=== PATIENT | male | born 1955 | race Caucasian/White ===

== ENCOUNTER 2017-07-29 10:27 | Day surgery (SDC) | payer MEDICARE ==
[~2017-07-29] VITALS: Ht 182.9 cm; Wt 94.0 kg
[2017-07-29 11:06] VITALS: BP 196/107
[2017-07-29] MEDS ORDERED: DIPHENHYDRAMINE 50 MG/ML, 1ML ONE (11:06)
[2017-07-29] MEDS ORDERED: ONDANSETRON 2MG/ML, 2ML ONE (11:28)
[2017-07-29] MEDS ORDERED: ONDANSETRON 2MG/ML, 2ML IVPush ONE (11:30)
[2017-07-29] MEDS ORDERED: DIPHENHYDRAMINE 50 MG/ML, 1ML IVPush ONE (11:30)
[2017-07-29] MEDS ORDERED: PLEASE ENTER HEIGHT AND WEIGHT MC SCH (11:30)
[2017-07-29] MEDS ORDERED: PLEASE ENTER ALLERGIES MC SCH (11:30)
[2017-07-29] MEDS ORDERED: MOXI3DRO11 OP (11:56)
[2017-07-29] MEDS ORDERED: LISI40TA PO (11:56)
[2017-07-29] MEDS ORDERED: CARV12.543 PO (11:56)
[2017-07-29] MEDS ORDERED: FERR325T17 PO (11:56)
[2017-07-29] MEDS ORDERED: BIMA2.5D5 OP (11:56)
[2017-07-29] MEDS ORDERED: TIMO5DRO33 OP (11:56)
[2017-07-29] MEDS ORDERED: CALC667C PO (11:56)
[2017-07-29] MEDS ORDERED: INSU100V8 SQ ×2 (12:00)
[2017-07-29 12:13] LABS: BASOPHILS # (AUTO) 0.03 x10^3/uL (0-0.1); BASOPHILS % (AUTO) 1 % (0-1); EOSINOPHILS # (AUTO) 0.11 x10^3/uL (0-0.4); EOSINOPHILS % (AUTO) 3 % (1-7); LYMPHOCYTES # (AUTO) 0.77 x10^3/uL (1-3.4); LYMPHOCYTES % (AUTO) 19 % (22-44); MD NO; MEAN CORPUSCULAR HEMOGLOBIN 29.2 pg (27.5-34.5); MEAN CORPUSCULAR HGB CONC 32.9 g/dL (33.2-36.2); MEAN CORPUSCULAR VOLUME 88.9 fL (81-97); MEAN PLATELET VOLUME 6.8 fL (7.4-10.4); MONOCYTES # (AUTO) 0.34 x10^3/uL (0.2-0.8); MONOCYTES % (AUTO) 8 % (2-9); NEUTROPHILS # (AUTO) 2.86 x10^3/uL (1.8-6.8); NEUTROPHILS % (AUTO) 70 % (42-75); PLATELET COUNT 211 x10^3/uL (130-400); RED BLOOD COUNT 3.19 x10^6/uL (4.38-5.82); RED CELL DISTRIBUTION WIDTH 15.2 % (9.4-14.8)
[2017-07-29 12:24] LABS: ANION GAP 6 mmol/L (5-15); CALCIUM 7.8 mg/dL (8.5-10.1); CHLORIDE 107 mmol/L (98-107); CREATININE 3.03 mg/dL (0.7-1.3)
[2017-07-29] MEDS ORDERED: hydrALAzine 20 MG/ML, 1ML ONE (12:24)
[2017-07-29] MEDS ORDERED: hydrALAzine 20 MG/ML, 1ML IV ONE (12:30)
[2017-07-29 12:33] LABS: INTERNATIONAL NORMALIZED RATIO 0.96 (0.93-1.1); PROTHROMBIN TIME 9.9 Seconds (9.6-11.5)
[2017-07-29] MEDS ORDERED: FENTANYL PF 100 MCG/2ML ONE (13:09)
[2017-07-29] MEDS ORDERED: HEPARIN 1,000 UNITS/ML, 10ML ONE (13:09)
[2017-07-29] MEDS ORDERED: MIDAZOLAM 1 MG/ML, 5ML ONE (13:09)
[2017-07-29] MEDS ORDERED: VERAPAMIL 2.5 MG/ML, 2ML ONE (13:09)
[2017-07-29] MEDS ORDERED: LIDOCAINE-MPF 2% ,5ML ONE (13:09)
== END 2017-07-29 16:34 | disposition home or self-care (01) ==
LOC: CACL 10:27
PROVIDERS: ATTEND Internal Medicine Cardiovascular Disease
DX: I27.20 Pulmonary hypertension, unspecified (principal); I13.10 Hypertensive heart and chronic kidney disease without heart failure, with stage 1 through stage 4 chronic kidney disease, or unspecified chronic kidney disease; E11.22 Type 2 diabetes mellitus with diabetic chronic kidney disease; N18.4 Chronic kidney disease, stage 4 (severe); E11.65 Type 2 diabetes mellitus with hyperglycemia; Z88.0 Allergy status to penicillin; Z88.5 Allergy status to narcotic agent; Z87.891 Personal history of nicotine dependence; Z79.899 Other long term (current) drug therapy
CPT/HCPCS: 36415; 80048; 82962; 83880; 85025; 85610; 93451; 99156; C1769; C1894; J0360; J1644; J2250; J2405; J3010; J3490; J1200

== ENCOUNTER 2018-01-04 13:29 | Inpatient (IN) | payer MEDICARE ==
[~2018-01-04] VITALS: Ht 182.9 cm; Wt 77.8 kg
[~2018-01-04 13:29] MED LIST: BIMA2.5D5 OP; CALC667C PO; CARV12.543 PO; FERR325T17 PO; INSU100V8 SQ; LISI40TA PO; MOXI3DRO11 OP; TIMO5DRO33 OP
[2018-01-04] MEDS ORDERED: ONDANSETRON ODT 4 MG ONE (13:37)
[2018-01-04 13:52] LABS: BASOPHILS # (AUTO) 0.02 x10^3/uL (0-0.1); BASOPHILS % (AUTO) 0 % (0-1); EOSINOPHILS # (AUTO) 0.09 x10^3/uL (0-0.4); EOSINOPHILS % (AUTO) 2 % (1-7); LYMPHOCYTES # (AUTO) 0.64 x10^3/uL (1-3.4); LYMPHOCYTES % (AUTO) 14 % (22-44); MD NO; MEAN CORPUSCULAR HEMOGLOBIN 31.3 pg (27.5-34.5); MEAN CORPUSCULAR HGB CONC 35.3 g/dL (33.2-36.2); MEAN CORPUSCULAR VOLUME 88.6 fL (81-97); MEAN PLATELET VOLUME 7.1 fL (7.4-10.4); MONOCYTES # (AUTO) 0.41 x10^3/uL (0.2-0.8); MONOCYTES % (AUTO) 9 % (2-9); NEUTROPHILS # (AUTO) 3.25 x10^3/uL (1.8-6.8); NEUTROPHILS % (AUTO) 74 % (42-75); PLATELET COUNT 195 x10^3/uL (130-400); RED BLOOD COUNT 2.93 x10^6/uL (4.38-5.82); RED CELL DISTRIBUTION WIDTH 13.3 % (9.4-14.8)
[2018-01-04] MEDS ORDERED: MECLIZINE CHEWABLE 25 MG TAB PO ONE (14:00)
[2018-01-04] MEDS ORDERED: SODIUM CHLORIDE 0.9% 1,000ML IVBOLUS ONE (14:00)
[2018-01-04] MEDS ORDERED: SODIUM CHLORIDE FLUSH 10ML SYR IVF ONE (14:00)
[2018-01-04] MEDS ORDERED: ONDANSETRON 2MG/ML, 2ML IVPush ONE (14:00)
[2018-01-04] MEDS ORDERED: PLEASE ENTER HEIGHT AND WEIGHT MC SCH (14:00)
[2018-01-04] MEDS ORDERED: MECLIZINE CHEWABLE 25 MG TAB ONE (14:02)
[2018-01-04 14:04] LABS: ALBUMIN 2.7 g/dL (3.4-5.0); ANION GAP 12 mmol/L (5-15); CALCIUM 7.7 mg/dL (8.5-10.1); CHLORIDE 92 mmol/L (98-107)
[2018-01-04 14:09] LABS: ALANINE AMINOTRANSFERASE 18 U/L (12-78); ALKALINE PHOSPHATASE 76 U/L (45-117); BILIRUBIN,TOTAL 0.3 mg/dL (0.2-1.0); CREATININE 5.43 mg/dL (0.7-1.3); TOTAL PROTEIN 5.7 g/dL (6.4-8.2); TROPONIN I 0.064 ng/mL (0.000-0.045)
[2018-01-04 14:25] LABS: ACETAMINOPHEN < 2 mcg/mL (10-30); SALICYLATE LEVEL < 1.7 mg/dL (2.8-20.0)
[2018-01-04] MEDS ORDERED: hydrALAzine 20 MG/ML, 1ML ONE (14:46)
[2018-01-04] MEDS ORDERED: hydrALAzine 20 MG/ML, 1ML IV ONE ×2 (15:00→16:00)
[2018-01-04 15:04] LABS: INTERNATIONAL NORMALIZED RATIO 0.96 (0.93-1.1)
[2018-01-04] MEDS ORDERED: FUROSEMIDE 100 MG/10 ML IV ONE (16:00)
[2018-01-04] MEDS ORDERED: INSU100C5 SQ-INSULIN (16:33)
[2018-01-04] MEDS ORDERED: ONDANSETRON 2MG/ML, 2ML IVPush PRN (17:00)
[2018-01-04] MEDS ORDERED: POLYETHYLENE GLYCOL 17 GM PACKET PO PRN (17:00)
[2018-01-04] MEDS ORDERED: INSULIN DETEMIR 100 UNITS/ML, PEN SQ-INSULIN SCH (17:00)
[2018-01-04] MEDS ORDERED: LABETALOL 5MG/ML, 20ML IVPush PRN ×2 (17:00→21:00)
[2018-01-04 17:04] LABS: FREE T4 (FREE THYROXINE) 0.8 ng/dL (0.76-1.46); THYROID STIMULATING HORMONE 13.2 mIU/L (0.358-3.740)
[2018-01-04 17:06] LABS: CHOL/HDL RATIO 7.3; LDL/HDL RATIO 5.2 (0.5-3.0)
[2018-01-04 17:33] LABS: HEMOGLOBIN A1C 13.7 % (4.2-6.3)
[2018-01-04 18:05] VITALS: BP 170/81
[2018-01-04 18:23] LABS: CHLORIDE,URINE RANDOM 83 mmol/L; POTASSIUM,URINE RANDOM 25 mmol/L; SODIUM,URINE RANDOM 74 mmol/L
[2018-01-04 18:33] LABS: AMPHETAMINE SCREEN, URINE Negative (Negative); BARBITURATE SCREEN, URINE Negative (Negative); BENZODIAZEPINE SCREEN, URINE Negative (Negative); CANNABINOID SCREEN, URINE Negative (Negative); COCAINE SCREEN, URINE Negative (Negative); METHADONE SCREEN, URINE Negative (Negative); OPIATE SCREEN, URINE Negative (Negative)
[2018-01-04] MEDS: AMLODIPINE 5 MG TABLET PO SCH ×2 (18:34→20:48)
[2018-01-04] MEDS: ONDANSETRON ODT 4 MG PO PRN ×2 (18:34→22:51)
[2018-01-04] MEDS: HEPARIN 5,000 UNITS/ML, 1ML SQ SCH (18:34)
[2018-01-04 18:36] VITALS: BP 169/80
[2018-01-04 18:40] LABS: MICROSCOPIC AUTO
[2018-01-04 18:42] LABS: CULTURE INDICATED? NO
[2018-01-04] MEDS: CARVEDILOL 25 MG TABLET PO SCH (20:48)
[2018-01-04] MEDS: INSULIN LISPRO 100 UNITS/ML, PEN SQ-INSULIN SCH ×2 (20:48→20:53)
[2018-01-04] MEDS: INSULIN GLARGINE 100 UNITS/ML, PEN SQ-INSULIN SCH (20:49)
[2018-01-04] MEDS ORDERED: hydrALAzine 20 MG/ML, 1ML IV PRN (21:00)
[2018-01-04] MEDS ORDERED: SODIUM CHLORIDE 0.9% 1,000 ML IV SCH (21:30)
[2018-01-04 21:59] LABS: TROPONIN I 0.055 ng/mL (0.000-0.045)
[2018-01-05] MEDS: HEPARIN 5,000 UNITS/ML, 1ML SQ SCH ×3 (01:00→17:34)
[2018-01-05 01:39] VITALS: BP 110/67
[2018-01-05] MEDS: ATORVASTATIN 40 MG TABLET PO SCH ×2 (03:10→20:50)
[2018-01-05 05:48] LABS: BASOPHILS # (AUTO) 0.02 x10^3/uL (0-0.1); BASOPHILS % (AUTO) 1 % (0-1); EOSINOPHILS % (AUTO) 3 % (1-7); LYMPHOCYTES # (AUTO) 0.91 x10^3/uL (1-3.4); LYMPHOCYTES % (AUTO) 23 % (22-44); MD NO; MEAN CORPUSCULAR HEMOGLOBIN 29.8 pg (27.5-34.5); MEAN CORPUSCULAR HGB CONC 33.7 g/dL (33.2-36.2); MEAN CORPUSCULAR VOLUME 88.2 fL (81-97); MEAN PLATELET VOLUME 7.3 fL (7.4-10.4); MONOCYTES # (AUTO) 0.38 x10^3/uL (0.2-0.8); MONOCYTES % (AUTO) 10 % (2-9); NEUTROPHILS # (AUTO) 2.56 x10^3/uL (1.8-6.8); NEUTROPHILS % (AUTO) 64 % (42-75); PLATELET COUNT 161 x10^3/uL (130-400); RED BLOOD COUNT 2.76 x10^6/uL (4.38-5.82); RED CELL DISTRIBUTION WIDTH 13.8 % (9.4-14.8)
[2018-01-05 05:57] LABS: ALBUMIN 2.2 g/dL (3.4-5.0); ANION GAP 9 mmol/L (5-15); CALCIUM 7.8 mg/dL (8.5-10.1); CHLORIDE 97 mmol/L (98-107)
[2018-01-05 06:01] LABS: ALKALINE PHOSPHATASE 62 U/L (45-117); BILIRUBIN,TOTAL 0.3 mg/dL (0.2-1.0); CHOL/HDL RATIO 6.7; CHOLESTEROL, TOTAL 308 mg/dL (140-239); CREATININE 5.71 mg/dL (0.7-1.3); HDL CHOL % 15 % (26-37); HDL CHOLESTEROL (DIRECT) 46 mg/dL (40-60); LDL CHOLESTEROL,CALCULATED 235 mg/dL (54-169); LDL/HDL RATIO 5.1 (0.5-3.0); TOTAL PROTEIN 5.1 g/dL (6.4-8.2); TRIGLYCERIDES 134 mg/dL (50-200); VLDL CHOLESTEROL 27 mg/dL (0-25)
[2018-01-05 06:02] LABS: TROPONIN I 0.054 ng/mL (0.000-0.045)
[2018-01-05 06:07] LABS: ALANINE AMINOTRANSFERASE 19 U/L (12-78)
[2018-01-05 06:57] VITALS: BP 115/64
[2018-01-05] MEDS: INSULIN LISPRO 100 UNITS/ML, PEN SQ-INSULIN SCH ×4 (07:00→20:48)
[2018-01-05] MEDS: SENNA/DOCUSATE TABLET PO SCH (09:00)
[2018-01-05] MEDS ORDERED: SODIUM CHLORIDE 0.9% 1,000 ML IV SCH (10:00)
[2018-01-05] MEDS: CALCIUM ACETATE 667 MG CAPSULE PO SCH (10:26)
[2018-01-05] MEDS: CARVEDILOL 25 MG TABLET PO SCH ×2 (10:26→20:50)
[2018-01-05] MEDS: FERROUS SULFATE 325 MG TABLET PO SCH (10:26)
[2018-01-05] MEDS: AMLODIPINE 5 MG TABLET PO SCH ×2 (10:27→20:50)
[2018-01-05] MEDS ORDERED: ACETAMINOPHEN 325 MG TABLET PO PRN (11:00)
[2018-01-05] MEDS: SEVELAMER CARBONATE 800MG TAB PO SCH ×2 (12:46→17:34)
[2018-01-05 13:23] VITALS: BP 134/74
[2018-01-05 19:50] VITALS: BP 153/79
[2018-01-05] MEDS: INSULIN GLARGINE 100 UNITS/ML, PEN SQ-INSULIN SCH (20:50)
[2018-01-06] VITALS (8 sets, daily range): BP systolic 94–161; BP diastolic 63–84
[2018-01-06] MEDS: HEPARIN 5,000 UNITS/ML, 1ML SQ SCH ×3 (01:06→16:11)
[2018-01-06 06:44] LABS: BASOPHILS # (AUTO) 0.01 x10^3/uL (0-0.1); BASOPHILS % (AUTO) 0 % (0-1); EOSINOPHILS # (AUTO) 0.14 x10^3/uL (0-0.4); EOSINOPHILS % (AUTO) 4 % (1-7); LYMPHOCYTES # (AUTO) 0.73 x10^3/uL (1-3.4); LYMPHOCYTES % (AUTO) 21 % (22-44); MD NO; MEAN CORPUSCULAR VOLUME 88.3 fL (81-97); MEAN PLATELET VOLUME 7.3 fL (7.4-10.4); MONOCYTES # (AUTO) 0.32 x10^3/uL (0.2-0.8); MONOCYTES % (AUTO) 9 % (2-9); NEUTROPHILS # (AUTO) 2.27 x10^3/uL (1.8-6.8); NEUTROPHILS % (AUTO) 65 % (42-75); PLATELET COUNT 159 x10^3/uL (130-400); RED BLOOD COUNT 2.72 x10^6/uL (4.38-5.82); RED CELL DISTRIBUTION WIDTH 13.7 % (9.4-14.8)
[2018-01-06 06:56] LABS: ALBUMIN 2.2 g/dL (3.4-5.0); ANION GAP 12 mmol/L (5-15); CALCIUM 7.5 mg/dL (8.5-10.1); CHLORIDE 97 mmol/L (98-107)
[2018-01-06 07:22] LABS: CREATININE 5.96 mg/dL (0.7-1.3); IRON LEVEL 92 mcg/dL (65-175); TOTAL IRON BINDING CAPACITY 223 mcg/dL (250-450)
[2018-01-06 07:23] LABS: % IRON SATURATION 41 % (20-55); ALANINE AMINOTRANSFERASE 14 U/L (12-78); ALKALINE PHOSPHATASE 59 U/L (45-117); BILIRUBIN,TOTAL 0.2 mg/dL (0.2-1.0); TOTAL PROTEIN 4.9 g/dL (6.4-8.2)
[2018-01-06] MEDS: INSULIN LISPRO 100 UNITS/ML, PEN SQ-INSULIN SCH ×4 (07:30→21:00)
[2018-01-06] MEDS: SENNA/DOCUSATE TABLET PO SCH (09:05)
[2018-01-06] MEDS: CALCIUM ACETATE 667 MG CAPSULE PO SCH (09:05)
[2018-01-06] MEDS: FERROUS SULFATE 325 MG TABLET PO SCH (09:05)
[2018-01-06] MEDS: CARVEDILOL 25 MG TABLET PO SCH ×2 (09:05→21:03)
[2018-01-06] MEDS: SEVELAMER CARBONATE 800MG TAB PO SCH ×3 (09:05→17:24)
[2018-01-06] MEDS: AMLODIPINE 5 MG TABLET PO SCH ×2 (09:05→21:03)
[2018-01-06] MEDS: CHOLECALCIFEROL 5,000u TAB PO SCH (11:03)
[2018-01-06] MEDS: ATORVASTATIN 40 MG TABLET PO SCH (21:03)
[2018-01-06] MEDS: INSULIN GLARGINE 100 UNITS/ML, PEN SQ-INSULIN SCH (21:08)
[2018-01-07] MEDS: HEPARIN 5,000 UNITS/ML, 1ML SQ SCH ×3 (01:00→16:45)
[2018-01-07 02:00] VITALS: BP 144/77
[2018-01-07 05:35] LABS: CHLORIDE 97 mmol/L (98-107)
[2018-01-07 05:41] LABS: ANION GAP 10 mmol/L (5-15); CALCIUM 7.8 mg/dL (8.5-10.1); CREATININE 6.12 mg/dL (0.7-1.3)
[2018-01-07] MEDS: INSULIN LISPRO 100 UNITS/ML, PEN SQ-INSULIN SCH ×5 (07:00→20:49)
[2018-01-07] MEDS: SEVELAMER CARBONATE 800MG TAB PO SCH ×3 (08:00→16:45)
[2018-01-07 08:25] VITALS: BP_SYST 145; BP_SYST 153; BP_SYST 97; BP_DIAS 61; BP_DIAS 76; BP_DIAS 78
[2018-01-07] MEDS: SENNA/DOCUSATE TABLET PO SCH (09:00)
[2018-01-07] MEDS: CHOLECALCIFEROL 5,000u TAB PO SCH (09:08)
[2018-01-07] MEDS: FERROUS SULFATE 325 MG TABLET PO SCH (09:08)
[2018-01-07] MEDS: CARVEDILOL 25 MG TABLET PO SCH ×2 (09:08→20:46)
[2018-01-07] MEDS: CALCIUM ACETATE 667 MG CAPSULE PO SCH (09:09)
[2018-01-07] MEDS: AMLODIPINE 5 MG TABLET PO SCH ×2 (09:09→20:46)
[2018-01-07 12:25] VITALS: BP_SYST 114; BP_SYST 134; BP_SYST 145; BP_DIAS 68; BP_DIAS 69; BP_DIAS 78
[2018-01-07 20:00] VITALS: BP 143/73
[2018-01-07 20:01] VITALS: BP 130/70
[2018-01-07 20:02] VITALS: BP 111/62
[2018-01-07] MEDS: ATORVASTATIN 40 MG TABLET PO SCH (20:46)
[2018-01-07] MEDS: INSULIN GLARGINE 100 UNITS/ML, PEN SQ-INSULIN SCH (20:47)
[2018-01-08] MEDS: HEPARIN 5,000 UNITS/ML, 1ML SQ SCH ×3 (01:00→17:27)
[2018-01-08 02:00] VITALS: BP 144/76
[2018-01-08 02:01] VITALS: BP 123/68
[2018-01-08 02:02] VITALS: BP 107/52
[2018-01-08 04:52] LABS: ANION GAP 7 mmol/L (5-15); CALCIUM 7.8 mg/dL (8.5-10.1); CHLORIDE 99 mmol/L (98-107); CREATININE 6.43 mg/dL (0.7-1.3)
[2018-01-08] MEDS: ONDANSETRON ODT 4 MG PO PRN ×2 (06:48→11:33)
[2018-01-08] MEDS: INSULIN LISPRO 100 UNITS/ML, PEN SQ-INSULIN SCH ×4 (07:00→21:16)
[2018-01-08 07:21] VITALS: BP 134/77
[2018-01-08] MEDS: SEVELAMER CARBONATE 800MG TAB PO SCH ×3 (08:00→17:00)
[2018-01-08] MEDS: CALCIUM ACETATE 667 MG CAPSULE PO SCH (09:00)
[2018-01-08] MEDS: CARVEDILOL 25 MG TABLET PO SCH ×2 (09:00→20:56)
[2018-01-08] MEDS: FERROUS SULFATE 325 MG TABLET PO SCH (09:00)
[2018-01-08] MEDS: CHOLECALCIFEROL 5,000u TAB PO SCH (09:00)
[2018-01-08] MEDS: SENNA/DOCUSATE TABLET PO SCH (09:00)
[2018-01-08] MEDS: AMLODIPINE 5 MG TABLET PO SCH ×2 (09:00→20:56)
[2018-01-08] MEDS ORDERED: LIDOCAINE-MPF 2%, 2ML ONE (11:11)
[2018-01-08 14:00] VITALS: BP 106/58
[2018-01-08] MEDS: ATORVASTATIN 40 MG TABLET PO SCH (20:56)
[2018-01-08] MEDS: INSULIN GLARGINE 100 UNITS/ML, PEN SQ-INSULIN SCH (21:17)
[2018-01-08 21:18] VITALS: BP 159/79
[2018-01-09] VITALS (7 sets, daily range): BP systolic 96–139; BP diastolic 57–84
[2018-01-09] MEDS: HEPARIN 5,000 UNITS/ML, 1ML SQ SCH ×3 (01:06→17:32)
[2018-01-09 06:02] LABS: ALBUMIN 2.4 g/dL (3.4-5.0); ANION GAP 9 mmol/L (5-15); CALCIUM 7.6 mg/dL (8.5-10.1); CHLORIDE 97 mmol/L (98-107); CREATININE 5.47 mg/dL (0.7-1.3)
[2018-01-09] MEDS: SEVELAMER CARBONATE 800MG TAB PO SCH ×3 (08:00→17:00)
[2018-01-09] MEDS ORDERED: MECLIZINE 12.5 MG TABLET PO PRN (08:00)
[2018-01-09] MEDS: INSULIN LISPRO 100 UNITS/ML, PEN SQ-INSULIN SCH ×4 (08:56→20:20)
[2018-01-09] MEDS: FERROUS SULFATE 325 MG TABLET PO SCH (08:58)
[2018-01-09] MEDS: CALCIUM ACETATE 667 MG CAPSULE PO SCH (08:58)
[2018-01-09] MEDS: AMLODIPINE 5 MG TABLET PO SCH ×2 (08:59→20:17)
[2018-01-09] MEDS: CHOLECALCIFEROL 5,000u TAB PO SCH (08:59)
[2018-01-09] MEDS: SENNA/DOCUSATE TABLET PO SCH (09:00)
[2018-01-09] MEDS: CARVEDILOL 25 MG TABLET PO SCH ×2 (09:04→20:17)
[2018-01-09] MEDS: ONDANSETRON ODT 4 MG PO PRN (11:11)
[2018-01-09] MEDS: INSULIN GLARGINE 100 UNITS/ML, PEN SQ-INSULIN SCH (20:19)
[2018-01-09] MEDS: ATORVASTATIN 40 MG TABLET PO SCH (20:20)
[2018-01-10] MEDS: HEPARIN 5,000 UNITS/ML, 1ML SQ SCH ×3 (01:00→18:14)
[2018-01-10 01:43] VITALS: BP 135/73
[2018-01-10] MEDS: INSULIN LISPRO 100 UNITS/ML, PEN SQ-INSULIN SCH ×4 (07:00→20:38)
[2018-01-10] MEDS: SEVELAMER CARBONATE 800MG TAB PO SCH ×3 (08:00→17:00)
[2018-01-10 08:27] VITALS: BP 126/63
[2018-01-10] MEDS: CARVEDILOL 25 MG TABLET PO SCH ×2 (08:45→20:36)
[2018-01-10] MEDS: FERROUS SULFATE 325 MG TABLET PO SCH (08:45)
[2018-01-10] MEDS: AMLODIPINE 5 MG TABLET PO SCH ×2 (08:45→20:36)
[2018-01-10] MEDS: SENNA/DOCUSATE TABLET PO SCH (08:45)
[2018-01-10] MEDS: CALCIUM ACETATE 667 MG CAPSULE PO SCH (08:46)
[2018-01-10] MEDS: CHOLECALCIFEROL 5,000u TAB PO SCH (08:46)
[2018-01-10 14:03] VITALS: BP 116/62
[2018-01-10 18:36] VITALS: BP 137/72
[2018-01-10] MEDS: INSULIN GLARGINE 100 UNITS/ML, PEN SQ-INSULIN SCH (20:37)
[2018-01-10] MEDS: ATORVASTATIN 40 MG TABLET PO SCH (20:39)
[2018-01-11] MEDS: HEPARIN 5,000 UNITS/ML, 1ML SQ SCH ×3 (01:00→18:08)
[2018-01-11 01:05] VITALS: BP 125/69
[2018-01-11] MEDS: INSULIN LISPRO 100 UNITS/ML, PEN SQ-INSULIN SCH ×4 (07:00→20:24)
[2018-01-11 07:18] LABS: BASOPHILS # (AUTO) 0.03 x10^3/uL (0-0.1); BASOPHILS % (AUTO) 1 % (0-1); EOSINOPHILS # (AUTO) 0.15 x10^3/uL (0-0.4); EOSINOPHILS % (AUTO) 4 % (1-7); LYMPHOCYTES # (AUTO) 0.72 x10^3/uL (1-3.4); LYMPHOCYTES % (AUTO) 20 % (22-44); MD NO; MEAN CORPUSCULAR HEMOGLOBIN 30.5 pg (27.5-34.5); MEAN CORPUSCULAR HGB CONC 34.6 g/dL (33.2-36.2); MEAN CORPUSCULAR VOLUME 88.3 fL (81-97); MEAN PLATELET VOLUME 7.2 fL (7.4-10.4); MONOCYTES # (AUTO) 0.48 x10^3/uL (0.2-0.8); MONOCYTES % (AUTO) 14 % (2-9); NEUTROPHILS # (AUTO) 2.17 x10^3/uL (1.8-6.8); NEUTROPHILS % (AUTO) 61 % (42-75); PLATELET COUNT 165 x10^3/uL (130-400); RED BLOOD COUNT 2.63 x10^6/uL (4.38-5.82); RED CELL DISTRIBUTION WIDTH 13.2 % (9.4-14.8)
[2018-01-11 07:30] LABS: ALANINE AMINOTRANSFERASE 14 U/L (12-78); ALBUMIN 2.3 g/dL (3.4-5.0); ANION GAP 9 mmol/L (5-15); CALCIUM 7.9 mg/dL (8.5-10.1); CHLORIDE 96 mmol/L (98-107)
[2018-01-11 07:33] LABS: ALKALINE PHOSPHATASE 60 U/L (45-117); BILIRUBIN,TOTAL 0.2 mg/dL (0.2-1.0); CREATININE 4.97 mg/dL (0.7-1.3); TOTAL PROTEIN 5.1 g/dL (6.4-8.2)
[2018-01-11] MEDS: SEVELAMER CARBONATE 800MG TAB PO SCH ×3 (08:00→17:00)
[2018-01-11 08:30] VITALS: BP 124/74
[2018-01-11] MEDS: CHOLECALCIFEROL 5,000u TAB PO SCH (08:30)
[2018-01-11] MEDS: CARVEDILOL 25 MG TABLET PO SCH ×2 (08:31→20:23)
[2018-01-11] MEDS: AMLODIPINE 5 MG TABLET PO SCH ×2 (08:31→20:23)
[2018-01-11] MEDS: SENNA/DOCUSATE TABLET PO SCH (08:31)
[2018-01-11] MEDS: CALCIUM ACETATE 667 MG CAPSULE PO SCH (08:31)
[2018-01-11] MEDS: FERROUS SULFATE 325 MG TABLET PO SCH (08:44)
[2018-01-11 13:10] VITALS: BP 111/49
[2018-01-11 19:18] VITALS: BP 123/69
[2018-01-11] MEDS: INSULIN GLARGINE 100 UNITS/ML, PEN SQ-INSULIN SCH (20:24)
[2018-01-11] MEDS: LOVASTATIN 20 MG TABLET PO SCH (21:00)
[2018-01-12 01:10] VITALS: BP 123/67
[2018-01-12] MEDS: HEPARIN 5,000 UNITS/ML, 1ML SQ SCH ×4 (01:22→17:21)
[2018-01-12 03:31] LABS: MEAN CORPUSCULAR HEMOGLOBIN 30.4 pg (27.5-34.5); MEAN CORPUSCULAR HGB CONC 34.3 g/dL (33.2-36.2); MEAN CORPUSCULAR VOLUME 88.6 fL (81-97); MEAN PLATELET VOLUME 7.7 fL (7.4-10.4); PLATELET COUNT 167 x10^3/uL (130-400); RED BLOOD COUNT 2.55 x10^6/uL (4.38-5.82); RED CELL DISTRIBUTION WIDTH 13.4 % (9.4-14.8)
[2018-01-12 03:32] LABS: ALANINE AMINOTRANSFERASE 13 U/L (12-78); ALBUMIN 2.4 g/dL (3.4-5.0); ANION GAP 9 mmol/L (5-15); CALCIUM 8.1 mg/dL (8.5-10.1); CHLORIDE 96 mmol/L (98-107); CREATININE 5.21 mg/dL (0.7-1.3)
[2018-01-12 03:34] LABS: ALKALINE PHOSPHATASE 57 U/L (45-117); BILIRUBIN,TOTAL 0.2 mg/dL (0.2-1.0); TOTAL PROTEIN 5.2 g/dL (6.4-8.2)
[2018-01-12 03:44] LABS: BASOPHILS # (AUTO) 0.03 x10^3/uL (0-0.1); BASOPHILS % (AUTO) 1 % (0-1); EOSINOPHILS # (AUTO) 0.18 x10^3/uL (0-0.4); EOSINOPHILS % (AUTO) 5 % (1-7); LYMPHOCYTES # (AUTO) 0.79 x10^3/uL (1-3.4); LYMPHOCYTES % (AUTO) 22 % (22-44); MD SCAN; MONOCYTES # (AUTO) 0.48 x10^3/uL (0.2-0.8); MONOCYTES % (AUTO) 13 % (2-9); NEUTROPHILS # (AUTO) 2.11 x10^3/uL (1.8-6.8); NEUTROPHILS % (AUTO) 59 % (42-75)
[2018-01-12 08:00] VITALS: BP 135/70
[2018-01-12] MEDS: INSULIN LISPRO 100 UNITS/ML, PEN SQ-INSULIN SCH ×5 (09:25→20:41)
[2018-01-12] MEDS: SEVELAMER CARBONATE 800MG TAB PO SCH ×4 (09:26→17:21)
[2018-01-12] MEDS: AMLODIPINE 5 MG TABLET PO SCH ×2 (09:26→20:38)
[2018-01-12] MEDS: CARVEDILOL 25 MG TABLET PO SCH ×2 (09:26→20:38)
[2018-01-12] MEDS: FERROUS SULFATE 325 MG TABLET PO SCH (09:26)
[2018-01-12] MEDS: CALCIUM ACETATE 667 MG CAPSULE PO SCH (09:27)
[2018-01-12] MEDS: SENNA/DOCUSATE TABLET PO SCH (09:27)
[2018-01-12] MEDS: CHOLECALCIFEROL 5,000u TAB PO SCH (09:27)
[2018-01-12 13:30] VITALS: BP 142/71
[2018-01-12 20:00] VITALS: BP 150/71
[2018-01-12] MEDS: INSULIN GLARGINE 100 UNITS/ML, PEN SQ-INSULIN SCH (20:40)
[2018-01-12] MEDS: LOVASTATIN 20 MG TABLET PO SCH (20:41)
[2018-01-13 02:00] VITALS: BP 128/67
[2018-01-13 06:50] LABS: MEAN CORPUSCULAR HEMOGLOBIN 30.6 pg (27.5-34.5); MEAN CORPUSCULAR HGB CONC 34.4 g/dL (33.2-36.2); MEAN CORPUSCULAR VOLUME 88.9 fL (81-97); MEAN PLATELET VOLUME 7.8 fL (7.4-10.4); PLATELET COUNT 160 x10^3/uL (130-400); RED BLOOD COUNT 2.39 x10^6/uL (4.38-5.82); RED CELL DISTRIBUTION WIDTH 13.6 % (9.4-14.8)
[2018-01-13 06:51] LABS: ALANINE AMINOTRANSFERASE 13 U/L (12-78); ALBUMIN 2.3 g/dL (3.4-5.0); ANION GAP 10 mmol/L (5-15); CALCIUM 7.8 mg/dL (8.5-10.1); CHLORIDE 94 mmol/L (98-107); CREATININE 5.68 mg/dL (0.7-1.3)
[2018-01-13 06:54] LABS: ALKALINE PHOSPHATASE 61 U/L (45-117); BILIRUBIN,TOTAL 0.2 mg/dL (0.2-1.0); TOTAL PROTEIN 5.3 g/dL (6.4-8.2)
[2018-01-13] MEDS: INSULIN LISPRO 100 UNITS/ML, PEN SQ-INSULIN SCH ×4 (07:00→22:09)
[2018-01-13 07:35] LABS: BASOPHILS # (AUTO) 0.03 x10^3/uL (0-0.1); BASOPHILS % (AUTO) 1 % (0-1); EOSINOPHILS # (AUTO) 0.14 x10^3/uL (0-0.4); EOSINOPHILS % (AUTO) 4 % (1-7); LYMPHOCYTES # (AUTO) 0.61 x10^3/uL (1-3.4); LYMPHOCYTES % (AUTO) 17 % (22-44); MD SCAN; MONOCYTES % (AUTO) 11 % (2-9); NEUTROPHILS # (AUTO) 2.37 x10^3/uL (1.8-6.8); NEUTROPHILS % (AUTO) 67 % (42-75)
[2018-01-13 08:09] VITALS: BP 132/70
[2018-01-13] MEDS: CARVEDILOL 25 MG TABLET PO SCH ×2 (08:21→22:02)
[2018-01-13] MEDS: AMLODIPINE 5 MG TABLET PO SCH ×2 (08:21→22:02)
[2018-01-13] MEDS: FERROUS SULFATE 325 MG TABLET PO SCH (08:22)
[2018-01-13] MEDS: SENNA/DOCUSATE TABLET PO SCH (08:23)
[2018-01-13] MEDS: CHOLECALCIFEROL 5,000u TAB PO SCH (08:23)
[2018-01-13] MEDS: HEPARIN 5,000 UNITS/ML, 1ML SQ SCH ×2 (08:23→17:21)
[2018-01-13] MEDS: CALCIUM ACETATE 667 MG CAPSULE PO SCH (08:23)
[2018-01-13] MEDS: SEVELAMER CARBONATE 800MG TAB PO SCH ×2 (11:20→17:00)
[2018-01-13 13:12] VITALS: BP 140/73
[2018-01-13] MEDS ORDERED: LIDOCAINE-MPF 2%, 2ML ONE (13:30)
[2018-01-13] MEDS ORDERED: FLUMAZENIL 0.1 MG/1 ML, 5ML ONE (13:50)
[2018-01-13] MEDS ORDERED: FENTANYL PF 100 MCG/2ML ONE (13:50)
[2018-01-13] MEDS ORDERED: NALOXONE 1 MG/ML, 2ML ONE (13:50)
[2018-01-13] MEDS ORDERED: MIDAZOLAM 1 MG/ML, 5ML ONE (13:50)
[2018-01-13] MEDS ORDERED: VANCOMYCIN PER PHARMACY MC PRN (14:00)
[2018-01-13] MEDS ORDERED: VANCOMYCIN 1,500 MG in SODIUM CHLORIDE 0.9% 250 ML IV ONE (14:00)
[2018-01-13] MEDS ORDERED: ARANESP 100 MCG/ML **ESRD SQ SCH (14:30)
[2018-01-13 20:00] VITALS: BP 157/73
[2018-01-13] MEDS: LOVASTATIN 20 MG TABLET PO SCH (22:02)
[2018-01-13] MEDS: INSULIN GLARGINE 100 UNITS/ML, PEN SQ-INSULIN SCH (22:07)
[2018-01-14] VITALS (9 sets, daily range): BP systolic 75–145; BP diastolic 46–77
[2018-01-14] MEDS: HEPARIN 5,000 UNITS/ML, 1ML SQ SCH ×3 (01:54→16:18)
[2018-01-14] MEDS: SEVELAMER CARBONATE 800MG TAB PO SCH ×3 (08:00→16:18)
[2018-01-14] MEDS: INSULIN LISPRO 100 UNITS/ML, PEN SQ-INSULIN SCH ×4 (08:15→21:40)
[2018-01-14] MEDS: FERROUS SULFATE 325 MG TABLET PO SCH (08:16)
[2018-01-14] MEDS: AMLODIPINE 5 MG TABLET PO SCH ×2 (08:16→21:41)
[2018-01-14] MEDS: CALCIUM ACETATE 667 MG CAPSULE PO SCH (08:16)
[2018-01-14] MEDS: CARVEDILOL 25 MG TABLET PO SCH ×2 (08:16→21:41)
[2018-01-14] MEDS: SENNA/DOCUSATE TABLET PO SCH (08:16)
[2018-01-14] MEDS: CHOLECALCIFEROL 1,000 UNIT TABLET PO SCH (08:28)
[2018-01-14] MEDS: INSULIN GLARGINE 100 UNITS/ML, PEN SQ-INSULIN SCH (21:40)
[2018-01-14] MEDS: LOVASTATIN 20 MG TABLET PO SCH (21:41)
[2018-01-15] VITALS (7 sets, daily range): BP systolic 128–148; BP diastolic 57–74
[2018-01-15] MEDS: HEPARIN 5,000 UNITS/ML, 1ML SQ SCH ×3 (01:04→16:30)
[2018-01-15] MEDS: SEVELAMER CARBONATE 800MG TAB PO SCH ×3 (08:00→17:00)
[2018-01-15] MEDS: INSULIN LISPRO 100 UNITS/ML, PEN SQ-INSULIN SCH ×5 (08:17→20:55)
[2018-01-15] MEDS: FERROUS SULFATE 325 MG TABLET PO SCH (08:18)
[2018-01-15] MEDS: SENNA/DOCUSATE TABLET PO SCH (08:18)
[2018-01-15] MEDS: CHOLECALCIFEROL 1,000 UNIT TABLET PO SCH (08:18)
[2018-01-15] MEDS: AMLODIPINE 5 MG TABLET PO SCH ×2 (09:00→20:50)
[2018-01-15] MEDS: CARVEDILOL 25 MG TABLET PO SCH ×2 (09:00→20:50)
[2018-01-15] MEDS: LOVASTATIN 20 MG TABLET PO SCH (20:49)
[2018-01-15] MEDS: INSULIN GLARGINE 100 UNITS/ML, PEN SQ-INSULIN SCH (20:56)
[2018-01-16] MEDS: HEPARIN 5,000 UNITS/ML, 1ML SQ SCH ×3 (01:12→17:49)
[2018-01-16 02:06] VITALS: BP 136/69
[2018-01-16 07:45] VITALS: BP 143/74
[2018-01-16] MEDS: INSULIN LISPRO 100 UNITS/ML, PEN SQ-INSULIN SCH ×4 (07:54→21:13)
[2018-01-16] MEDS: CHOLECALCIFEROL 1,000 UNIT TABLET PO SCH (07:54)
[2018-01-16] MEDS: AMLODIPINE 5 MG TABLET PO SCH ×2 (07:54→21:07)
[2018-01-16] MEDS: SENNA/DOCUSATE TABLET PO SCH (07:55)
[2018-01-16] MEDS: CARVEDILOL 25 MG TABLET PO SCH ×2 (07:55→21:07)
[2018-01-16] MEDS: FERROUS SULFATE 325 MG TABLET PO SCH (07:55)
[2018-01-16] MEDS: SEVELAMER CARBONATE 800MG TAB PO SCH ×3 (07:55→17:00)
[2018-01-16 12:42] VITALS: BP 147/71
[2018-01-16 19:14] VITALS: BP 138/79
[2018-01-16] MEDS: LOVASTATIN 20 MG TABLET PO SCH (21:07)
[2018-01-16] MEDS: INSULIN GLARGINE 100 UNITS/ML, PEN SQ-INSULIN SCH (21:13)
[2018-01-17] MEDS: HEPARIN 5,000 UNITS/ML, 1ML SQ SCH ×3 (02:16→17:00)
[2018-01-17 02:20] VITALS: BP 131/68
[2018-01-17 05:51] LABS: ALBUMIN 2.4 g/dL (3.4-5.0); ANION GAP 9 mmol/L (5-15); CHLORIDE 102 mmol/L (98-107); CREATININE 4.17 mg/dL (0.7-1.3)
[2018-01-17] MEDS: INSULIN LISPRO 100 UNITS/ML, PEN SQ-INSULIN SCH ×3 (07:00→16:00)
[2018-01-17] MEDS: SEVELAMER CARBONATE 800MG TAB PO SCH ×3 (08:00→17:00)
[2018-01-17 08:15] VITALS: BP 135/72
[2018-01-17] MEDS: AMLODIPINE 5 MG TABLET PO SCH (09:00)
[2018-01-17] MEDS: CARVEDILOL 25 MG TABLET PO SCH (09:00)
[2018-01-17] MEDS: FERROUS SULFATE 325 MG TABLET PO SCH (12:41)
[2018-01-17] MEDS: CHOLECALCIFEROL 1,000 UNIT TABLET PO SCH (12:41)
[2018-01-17] MEDS: SENNA/DOCUSATE TABLET PO SCH (12:42)
[2018-01-17 13:10] VITALS: BP 159/77
[2018-01-17] MEDS ORDERED: DARB100V SQ (13:59)
[2018-01-17] MEDS ORDERED: LOVA20TA2 PO (13:59)
[2018-01-17] MEDS ORDERED: AMLO5TAB7 PO (13:59)
[2018-01-17] MEDS ORDERED: SEVE800T8 PO (13:59)
[2018-01-17] MEDS ORDERED: CHOL10003 PO (13:59)
[2018-01-17 18:27] VITALS: BP 140/80
== END 2018-01-17 19:23 | disposition home health service (06) | DRG 673 ==
LOC: ED 16:00 → EDIP 16:32 → 4EST 17:47 → 4WST 01-06 17:30
PROVIDERS: ADMIT Hospitalist; ATTEND Hospitalist
PROC: 02HV33Z Insertion of Infusion Device into Superior Vena Cava, Percutaneous Approach (ICD-10-PCS; principal; 2018-01-08)
PROC: B5181ZA Fluoroscopy of Superior Vena Cava using Low Osmolar Contrast, Guidance (ICD-10-PCS; 2018-01-08)
PROC: 5A1D70Z Performance of Urinary Filtration, Intermittent, Less than 6 Hours Per Day (ICD-10-PCS; 2018-01-08)
PROC: 5A1D70Z Performance of Urinary Filtration, Intermittent, Less than 6 Hours Per Day (ICD-10-PCS; 2018-01-09)
PROC: 0JH63XZ Insertion of Tunneled Vascular Access Device into Chest Subcutaneous Tissue and Fascia, Percutaneous Approach (ICD-10-PCS; 2018-01-13)
PROC: 02HV33Z Insertion of Infusion Device into Superior Vena Cava, Percutaneous Approach (ICD-10-PCS; 2018-01-13)
PROC: B5181ZA Fluoroscopy of Superior Vena Cava using Low Osmolar Contrast, Guidance (ICD-10-PCS; 2018-01-13)
PROC: B548ZZA Ultrasonography of Superior Vena Cava, Guidance (ICD-10-PCS; 2018-01-13)
PROC: 5A1D70Z Performance of Urinary Filtration, Intermittent, Less than 6 Hours Per Day (ICD-10-PCS; 2018-01-13)
PROC: 5A1D70Z Performance of Urinary Filtration, Intermittent, Less than 6 Hours Per Day (ICD-10-PCS; 2018-01-15)
PROC: 5A1D70Z Performance of Urinary Filtration, Intermittent, Less than 6 Hours Per Day (ICD-10-PCS; 2018-01-17)
DX: N17.9 Acute kidney failure, unspecified (principal); E43 Unspecified severe protein-calorie malnutrition; E87.1 Hypo-osmolality and hyponatremia; I13.2 Hypertensive heart and chronic kidney disease with heart failure and with stage 5 chronic kidney disease, or end stage renal disease; N18.6 End stage renal disease; I50.82 Biventricular heart failure; E11.65 Type 2 diabetes mellitus with hyperglycemia; E78.5 Hyperlipidemia, unspecified; G43.909 Migraine, unspecified, not intractable, without status migrainosus; R74.8 Abnormal levels of other serum enzymes; R94.6 Abnormal results of thyroid function studies; E61.1 Iron deficiency; H81.10 Benign paroxysmal vertigo, unspecified ear; I95.1 Orthostatic hypotension; Z66 Do not resuscitate; D63.1 Anemia in chronic kidney disease; E11.22 Type 2 diabetes mellitus with diabetic chronic kidney disease; E11.319 Type 2 diabetes mellitus with unspecified diabetic retinopathy without macular edema; E11.649 Type 2 diabetes mellitus with hypoglycemia without coma; Z68.23 Body mass index [BMI] 23.0-23.9, adult; Z79.4 Long term (current) use of insulin; Z82.49 Family history of ischemic heart disease and other diseases of the circulatory system; Z86.73 Personal history of transient ischemic attack (TIA), and cerebral infarction without residual deficits; Z91.14 Patient's other noncompliance with medication regimen; Z91.19 Patient's noncompliance with other medical treatment and regimen; Z79.899 Other long term (current) drug therapy; Z88.6 Allergy status to analgesic agent; Z88.5 Allergy status to narcotic agent; Z88.0 Allergy status to penicillin
CPT/HCPCS: 0399T; 36415; 36556; 36565; 70450; 70544; 70547; 70551; 71045; 76770; 76937; 77001; 80048; 80053; 80061; 80307; 80329; 81001; 82040; 82274; 82306; 82436; 82570; 82607; 82728; 82746; 82947; 82962; 83036; 83540; 83550; 83735; 83970; 84100; 84133; 84300; 84439; 84443; 84484; 84550; 85025; 85610; 85730; 86480; 86704; 86706; 86803; 87340; 93005; 93306; 96361; 96374; 96375; 99156; 99157; 99291; C1894; G0378; J0882; J1644; J1940; J2250; J2405; J3010; J3370; J3490; Q0162; C1750; C1751; G0480; J0360; J1642; J1815; J2310; J7030; J7050